=== PATIENT | male | born 1945 | race Caucasian/White ===

== ENCOUNTER 2025-06-27 08:22 | Outpatient (CLI) | payer MEDICARE ==
[~2025-06-27 08:22] MED LIST: ACET600C5 PO; ALPR-624 PO; ASPI-611 PO; ATOR-2 PO; GLIM4TAB7 PO; LISI-643 PO; METF1000 PO; MULT-620 PO; TEST200V33 IM
[2025-06-27 08:51] LABS: MEAN PLATELET VOLUME 7.6 FL (7.4-10.4); RED CELL DISTRIBUTION WIDTH 14.8 % (11.5-14.5)
[2025-06-27 08:52] LABS: LEUKOCYTE ESTERASE ,URINE NEGATIVE (Neg); NITRITES, URINE NEGATIVE (Neg); OCCULT BLOOD,URINE NEGATIVE (Neg)
[2025-06-27 08:54] LABS: UA COLLECTION TYPE CLN CATCH MIDSTREAM
[2025-06-27 09:21] LABS: % IRON SATURATION 45 % (11-46)
[2025-06-27 09:22] LABS: CHOL/HDL RATIO 3.0 (0.00-4.99); CREATININE 2.17 MG/DL (0.60-1.10); LDL CHOLESTEROL 96 MG/DL (50-100); TOTAL CARBON DIOXIDE 26.8 MMOL/L (24-32); eGFR 29 ML/MIN
[2025-06-28 11:11] LABS: TESTOSTERONE, SERUM 250 ng/dL (264-916)
[2025-07-02 09:19] LABS: TESTOSTERONE, FREE, DIRECT 4.3 pg/mL (6.6-18.1)
== END 2025-06-27 23:59 | disposition home or self-care (01) ==
LOC: RAD 08:22
PROVIDERS: ATTEND Nurse Practitioner Family
DX: D50.9 Iron deficiency anemia, unspecified (principal); Z00.00 Encounter for general adult medical examination without abnormal findings; E11.9 Type 2 diabetes mellitus without complications; E78.5 Hyperlipidemia, unspecified
CPT/HCPCS: 36415; 80053; 80061; 81003; 82043; 82728; 83036; 83540; 83550; 84402; 84403; 84466; 84550; 85025

== ENCOUNTER 2025-09-05 07:48 | Outpatient (CLI) | payer MEDICARE ==
[2025-09-05 08:38] LABS: CHOL/HDL RATIO 2.4 (0.00-4.99); CREATININE 1.87 MG/DL (0.60-1.10); LDL CHOLESTEROL 71 MG/DL (50-100); TOTAL CARBON DIOXIDE 26.4 MMOL/L (24-32); eGFR 35 ML/MIN
== END 2025-09-05 23:59 | disposition home or self-care (01) ==
LOC: LAB 07:48
PROVIDERS: ATTEND Nurse Practitioner Family
DX: E78.5 Hyperlipidemia, unspecified (principal)
CPT/HCPCS: 36415; 80053; 80061